=== PATIENT | male | born 1940 | race Caucasian/White ===

== ENCOUNTER 2022-07-30 16:30 | Outpatient (CLI) | payer MEDICARE, SELFPAY ==
--- NOTE | ~2022-07-30 | XR_ITS ---
XR abdomen/kub 1V 07/30/2022 17:07 INDICATION: Diarrhea TECHNIQUE: KUB COMPARISON: None FINDINGS: Bowel gas pattern is nonspecific. There is focally dilated small bowel loop in the left mid abdomen, most likely focal adynamic ileus. Moderate colonic fecal loading. There is no evidence of f ree air, mass, organomegaly, ascites or obstruction. No abnormal calculi are seen. The bones appear intact. IMPRESSION: 1: Mildly dilated small bowel left mid abdomen, most likely ileus. Reviewed, dictated and finalized at location A.
== END 2022-07-30 16:31 | disposition home or self-care (01) ==
PROVIDERS: PCP Family Medicine; Visit Provider Nurse Practitioner Family
DX: R19.7 Diarrhea, unspecified (principal)
CPT/HCPCS: 74018

== ENCOUNTER 2022-08-03 08:02 | Outpatient (CLI) | payer MEDICARE, SELFPAY ==
--- NOTE | ~2022-08-03 | CT_ITS ---
Non-contrast CT scan of the Abdomen and Pelvis Clinical indication: Ileus, diarrhea Technique: 2.5 mm axial scans were obtained through the abdomen and pelvis without intravenous or or al contrast. Dose reduction technique was used on this scan by utilizing automated exposure control a nd iterative reconstruction technique. The dose-length product (DLP) was 544.96 mGy-cm. Findings: Images through the lung bases reveal moderate right pleural effusion and small left pleura l effusion, bibasilar atelectatic change. Questionable partially imaged subcarinal lymphadenopathy.. Questionable minimal bilateral fullness of the renal collecting systems with suspected superimposed p arapelvic renal cysts. The liver, spleen, pancreas, gallbladder, and adrenals appear normal. There are atherosclerotic calci fications of the aorta. There is no evidence of bowel obstruction. Images through the pelvis were performed. There is small amount of ascites. Urinary bladder unremarka ble. Prostate gland is mildly enlarged. Impression: Moderate right pleural effusion and small left pleural effusion. Possible partially imaged subcarinal lymphadenopathy. Small amount of abdominopelvic ascites. Possible minimal hydronephrosis with parapelvic renal cysts. Reviewed, dictated and finalized at location . Impression: Moderate right pleural effusion and small left pleural effusion. Possible partially imaged subcarinal lymphadenopathy. Small amount of abdominopelvic ascites. Possible minimal hydronephrosis with parapelvic renal cysts.
== END 2022-08-03 08:03 | disposition home or self-care (01) ==
PROVIDERS: PCP Family Medicine; Visit Provider Nurse Practitioner Family
DX: R10.9 Unspecified abdominal pain (principal); J90 Pleural effusion, not elsewhere classified
CPT/HCPCS: 74176